=== PATIENT | male | born 1970 | race Caucasian/White ===

== ENCOUNTER 2017-02-05 08:37 | Emergency (ER) | payer MEDICAID, OTHER ==
[2017-02-05] MEDS ORDERED: DEXAMETHASONE 10 MG/ML VIAL PO STA (09:10)
--- NOTE | 2017-02-05 09:13 | ED Physician Documentation ---
PD HPI URI - Stated complaint Stated Complaint: R SIDE PX WITH COUGH - Chief complaint Chief Complaint: General - History obtained from History obtained from: Patient - History of Present Illness Timing - onset: How many days ago (6) Timing duration: Days (6) Timing details: Gradual onset, Still present Associated symptoms: Nasal congestion, Rhinorrhea, Dry cough, Chest pain. No: Fever, Chills Contributing factors: Sick contact (son with similar) Improves by: Rest, Medication Worsened by: Activity, Other (coughing) Similar symptoms before: Diagnosis (pneumonia) Recently seen: Not recently seen - Additional information Additional information: Otherwise well 46-year-old male has developed a cough about 6 days ago. He did have some coughing paroxysms and he is now developed some pain in the right posterior chest wall. He states that it hurts to cough and certain position changes will hurt as well. He does not have pain to to deep inspiration and he does not have pain at rest. Review of Systems Constitutional: reports: Myalgias, Fatigue. denies: Fever, Chills Eyes: denies: Decreased vision Ears: denies: Ear pain Nose: reports: Rhinorrhea / runny nose, Congestion Throat: denies: Sore throat Cardiac: reports: Chest pain / pressure. denies: Palpitations Respiratory: reports: Cough. denies: Dyspnea GI: denies: Abdominal Pain, Nausea, Vomiting : denies: Dysuria, Frequency PD PAST MEDICAL HISTORY - Past Medical History Past Medical History: Yes Cardiovascular: Hypertension - Past Surgical History Past Surgical History: No - Present Medications Home Medications: Ambulatory Orders Medication Instructions Recorded Confirmed Lisinopril 20 mg DAILY 02/05/17 02/05/17 - Allergies Allergies/Adverse Reactions: Allergies Allergy/AdvReac Type Severity Reaction Status Date / Time No Known Drug Allergies Allergy Verified 02/05/17 09:02 - Social History Does the pt smoke?: Yes Smoking Status: Current every day smoker Does the pt have substance abuse?: No PD ED PE NORMAL - Vitals Vital signs reviewed: Yes (hypertensive ) - General General: Alert and oriented X 3, No acute distress, Well developed/nourished - HEENT HEENT: Atraumatic, PERRL, EOMI, Other (minimal inflamation to both TM's with retained landmarks. ) - Cardiac Cardiac: RRR, No murmur - Respiratory Respiratory: No respiratory distress, Clear bilaterally, Other (pain to palpation of the lower right lateral chest wall. ) - Abdomen Abdomen: Soft, Non tender - Back Back: No CVA TTP, No spinal TTP - Derm Derm: Normal color, Warm and dry, No rash - Extremities Extremities: No deformity, No edema - Neuro Neuro: No motor deficit, No sensory deficit - Psych Psych: Normal mood, Normal affect Results - Vitals Vitals: Vital Signs - 24 hr 02/05/17 08:52 Temperature 36.8 C Heart Rate 99 Respiratory 19 Rate Blood Pressure 154/96 H O2 Saturation 100 Oxygen O2 Source Room air - Rads (name of study) 2 view chest Radiology: Prelim report reviewed (Impression: 1. No focal consolidation. 2. No rib fracture identified. 3. Subtle increased interstitial markings with peribronchial cuffing are nonspecific but can be seen in the setting of reactive airways disease bronchitis and viral infection.), EMP read indepedently , See rad report PD MEDICAL DECISION MAKING - ED course Complexity details: considered differential, d/w patient, d/w family ED course: 46-year-old male with a cough and congestion that is improving has pain in the chest wall posteriorly with coughing. This does appear to be a coughing injury and the patient appears to be resolving his illness. Chest x-ray was out without evidence of infiltrate or fracture and he is administered dexamethasone 10 mg orally. Departure - Departure Disposition: 01 Home, Self Care Clinical Impression: Strain of chest wall Qualifiers: Encounter type: initial encounter Qualified Code(s): S29.011A - Strain of muscle and tendon of front wall of thorax, initial encounter URI (upper respiratory infection) Qualifiers: URI type: unspecified URI Qualified Code(s): J06.9 - Acute upper respiratory infection, unspecified Condition: Stable Instructions: ED Upper Resp Infec No Abx Tx, ED Contusion Chest Wall Follow-Up: Alisson Vigil PA-C [Primary Care Provider] - Comments: Today in the Emergency Department your blood pressure was elevated. This can happen from the stress of the visit itself, from a current illness or circumstance or from uncontrolled hypertension. If you take blood pressure medications take your usual mediations, have your blood pressure re-checked in an appropriate setting and follow up any elevation with your primary care doctor.
[2017-02-05] MEDS ORDERED: DEXAMETHASONE 10 MG/ML VIAL ONE (09:32)
[2017-02-05 09:35] VITALS: BP 154/96
--- NOTE | 2017-02-05 09:49 | XRAY Preliminary Report ---
Exam: XR CHEST 2 VIEW PA/LAT IMPRESSION: 1. No focal consolidation. 2. No rib fracture identified. 3. Subtle increased interstitial markings with parabronchial cuffing are nonspecific but can be seen in setting of reactive airways disease, bronchitis and viral infection. [facility] SITE ID: [id number]
--- NOTE | 2017-02-05 09:52 | XRAY Report ---
EXAM: CHEST RADIOGRAPHY EXAM DATE: 02/05/2017 09:28 AM. CLINICAL HISTORY: Cough rib pain on the right. COMPARISON: None. TECHNIQUE: 2 views. FINDINGS: Lungs/Pleura: Several increased interstitial markings with bronchial cuffing. No focal opacities evid ent. No pleural effusion. No pneumothorax. Normal volumes. Mediastinum: Heart and mediastinal contours are unremarkable. Other: None. IMPRESSION: 1. No focal consolidation. 2. No rib fracture identified. 3. Subtle increased interstitial markings with parabronchial cuffing are nonspecific but can be seen in setting of reactive airways disease, bronchitis and viral infection. [facility] Referring Provider Line: [phone] SITE ID: [id number]
== END 2017-02-05 09:59 | disposition home or self-care (01) ==
LOC: ED 08:37
DX: S29.011A Strain of muscle and tendon of front wall of thorax, initial encounter (principal); X58.XXXA Exposure to other specified factors, initial encounter; J06.9 Acute upper respiratory infection, unspecified; I10 Essential (primary) hypertension; F17.200 Nicotine dependence, unspecified, uncomplicated
CPT/HCPCS: 71020; 99283

== ENCOUNTER 2017-10-01 17:06 | Emergency (ER) | payer MEDICAID ==
[2017-10-01 17:52] VITALS: BP 162/76
--- NOTE | 2017-10-01 18:27 | ED Physician Documentation ---
PD HPI URI - Stated complaint Stated Complaint: SORE THROAT - Chief complaint Chief Complaint: Heent - History obtained from History obtained from: Patient - History of Present Illness Timing - onset: How many days ago (3) Timing duration: Days (3) Timing details: Gradual onset (and then got a lot worse today.) Associated symptoms: Fever, Sore throat, Swollen nodes. No: Ear pain, Nasal congestion, Rhinorrhea, Dry cough, NVD Contributing factors: No: Sick contact, Travel, Immunocompromised Improves by: No: Rest Worsened by: Other (swallowing) Similar symptoms before: Has not had sx before Recently seen: Not recently seen Review of Systems Constitutional: reports: Fever, Chills, Myalgias Throat: reports: Sore throat, Swollen tonsils Cardiac: denies: Chest pain / pressure, Palpitations Respiratory: denies: Dyspnea, Cough GI: denies: Abdominal Pain, Nausea, Vomiting Skin: denies: Rash PD PAST MEDICAL HISTORY - Past Medical History Past Medical History: Yes Cardiovascular: Hypertension - Past Surgical History Past Surgical History: No - Present Medications Home Medications: Ambulatory Orders Medication Instructions Recorded Confirmed Lisinopril 20 mg PO DAILY 02/05/17 10/01/17 Cephalexin [Keflex] 500 mg PO QID #24 capsule 10/01/17 Dexamethasone [Decadron] 4 mg PO DAILY #5 tablet 10/01/17 HYDROcod/ACETAM 5/325 [[place] 5/325] 1 tab PO Q6H PRN #15 tablet 10/01/17 Naproxen 375 mg PO BID #20 tablet 10/01/17 - Allergies Allergies/Adverse Reactions: Allergies Allergy/AdvReac Type Severity Reaction Status Date / Time No Known Drug Allergies Allergy Verified 02/05/17 09:02 - Social History Does the pt smoke?: Yes Smoking Status: Current every day smoker Does the pt drink ETOH?: No Does the pt have substance abuse?: No - Immunizations Immunizations are current?: Yes - POLST Patient has POLST: No PD ED PE NORMAL - Vitals Vital signs reviewed: Yes - General General: Alert and oriented X 3, Well developed/nourished, Other (appears in pain with swallowing fluids. Voice is slightly garbled. Able to talk sentences.) - HEENT HEENT: Ears normal, Dentition benign. No: Pharynx benign (very red tonsils with exudate and right tonsil with redness and swelling around it (not underneath and no ) - Neck Neck: Supple, no meningeal sign, No bony TTP, No adenopathy - Cardiac Cardiac: RRR (tachycardic), No murmur - Respiratory Respiratory: Clear bilaterally - Abdomen Abdomen: Soft, Non tender - Back Back: No CVA TTP - Derm Derm: Normal color, Warm and dry, No rash - Extremities Extremities: No tenderness to palpate, Normal ROM s pain - Neuro Neuro: Alert and oriented X 3, No motor deficit. No: Normal speech Results - Vitals Vitals: Oxygen O2 Source Room air PD MEDICAL DECISION MAKING - ED course Complexity details: re-evaluated patient (improved voice and pain after meds IV here. ), considered differential, d/w patient Departure - Departure Disposition: 01 Home, Self Care Clinical Impression: Peritonsillar cellulitis Acute tonsillitis Qualifiers: Pharyngitis/tonsillitis etiology: unspecified etiology Qualified Code(s): J03.90 - Acute tonsillitis, unspecified Condition: Stable Record reviewed to determine appropriate education?: Yes Instructions: ED Peritonsillar Infec Abx No I andD Follow-Up: Alisson Vigil PA-C [Primary Care Provider] - Prescriptions: Cephalexin [Keflex] 500 mg PO QID #24 capsule Dexamethasone [Decadron] 4 mg PO DAILY #5 tablet HYDROcod/ACETAM 5/325 [[place] 5/325] 1 tab PO Q6H PRN #15 tablet PRN Reason: Pain Naproxen 375 mg PO BID #20 tablet Comments: Small frequent fluids. Tylenol or hydrocodone if needed for pain. Decadron steroid daily for 5 more days to decrease the swelling. Naproxen anti- inflammatory for swelling and pain twice daily for a week or so. Cephalexin antibiotic 4 times a day for the next 6 days. Recheck if not improving well into tomorrow and fully better by 3-5 days. Return sooner if worsening. Discharge Date/Time: 10/01/17 20:06
[2017-10-01] MEDS ORDERED: cefTRIAXone 2 GM VIAL IVP STA (18:41)
[2017-10-01] MEDS ORDERED: KETOROLAC 60 MG/2 ML VIAL IVP STA (18:41)
[2017-10-01] MEDS ORDERED: DEXAMETHASONE 10 MG/ML VIAL IVP STA (18:41)
[2017-10-01] MEDS ORDERED: SODIUM CHLORIDE 0.9% 1,000 ML IV ONE (18:42)
[2017-10-01] MEDS: ONDANSETRON 4 MG/2 ML VIAL IVP STA (19:07)
== END 2017-10-01 20:06 | disposition home or self-care (01) ==
LOC: ED 17:06
DX: J03.90 Acute tonsillitis, unspecified (principal); I10 Essential (primary) hypertension; F17.200 Nicotine dependence, unspecified, uncomplicated
CPT/HCPCS: 87430; 96361; 96374; 96375; 99283